=== PATIENT | male | born 2000 | race Caucasian/White ===

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

== ENCOUNTER 2022-12-24 17:31 | Emergency (ER) | payer SELFPAY ==
[2022-12-24 19:25] VITALS: BP 152/71; PULSE 60
[2022-12-24] MEDS ORDERED: Ketorolac 30 MG/ML SDV IM ONE (19:35)
== END 2022-12-24 20:25 | disposition home or self-care (01) ==
LOC: DL.ED 17:31
DX: S62.364A Nondisplaced fracture of neck of fourth metacarpal bone, right hand, initial encounter for closed fracture (principal); S62.366A Nondisplaced fracture of neck of fifth metacarpal bone, right hand, initial encounter for closed fracture; Z91.030 Bee allergy status; F17.210 Nicotine dependence, cigarettes, uncomplicated; W22.8XXA Striking against or struck by other objects, initial encounter
CPT/HCPCS: 73130; 96372; 99282; 99283; J1885